=== PATIENT | female | born 1970 | race Native Hawaiian/Other Pacific Islander ===

== ENCOUNTER 2018-11-10 07:33 | Inpatient (IN) | payer OTHER ==
[2018-11-10 08:57] LABS: BASO % 0.7 % (0.0-2.0); EOS # 0.5 K/uL (0.0-0.7); EOS % 9.3 % (0.0-4.0); LYMPH # 1.3 K/uL (1.0-4.3); MEAN CORPUSCULAR HEMOGLOBIN 13.9 pg (27.0-31.0); MEAN CORPUSCULAR HGB CONC 26.8 g/dL (33.0-37.0); MEAN PLATELET VOLUME 8.4 fL (7.2-11.7); MONO # 0.4 K/uL (0.0-0.8); MONO % 8.5 % (0.0-10.0); NEUT # 2.7 K/uL (1.8-7.0); NEUT % 55.5 % (50.0-75.0); NRBC % 0.2 % (0.0-2.0); RBC 4.57 Mil/uL (3.80-5.20); RED CELL DISTRIBUTION WIDTH 23.7 % (11.5-14.5); WHITE BLOOD COUNT 4.9 K/uL (4.8-10.8)
[2018-11-10 09:18] LABS: HEMOGLOBIN 6.4 g/dL (11.0-16.0); MEAN CELL VOLUME 52.1 fL (81.0-99.0)
[2018-11-10 09:24] LABS: CK-MB < 0.22 ng/mL (0.0-3.38)
[2018-11-10 09:29] LABS: ALB/GLOB RATIO 1.1 (1.0-2.1); ALBUMIN 4.3 g/dL (3.5-5.0); ALT/SGPT 18 U/L (9-52); AST/SGOT 23 U/L (14-36); BLOOD UREA NITROGEN 11 mg/dL (7-17); GFR NON-AFRICAN AMERICAN > 60; LIPASE 56 U/L (23-300)
--- NOTE | 2018-11-10 10:45 | C.PDOC ---
History Of Present Illness 48 y/o female presents to the ER complaining of intermittent midsternal chest pain which has been present for more than 1 month. Patient states that she has associated intermittent mild shortness of breath. Denies having fever,chills, headache,dizziness, nausea, vomiting, and leg swelling. Patient has PMhx of anemia with blood transfusions. Time Seen by Provider: 11/10/18 07:42 Chief Complaint (Nursing): Chest Pain History Per: Patient History/Exam Limitations: no limitations Onset/Duration Of Symptoms: Days Current Symptoms Are (Timing): Still Present Severity: Moderate Associated Symptoms: Dyspnea Past Medical History Reviewed: Historical Data, Nursing Documentation, Vital Signs Vital Signs: Last Vital Signs Temp 97.9 F 11/10/18 07:40 Pulse 73 11/10/18 07:40 Resp 18 11/10/18 07:40 BP 121/75 11/10/18 07:40 Pulse Ox 98 11/10/18 07:40 Primary Care Provider: FAMILY PROVIDER,NO - Medical History PMH: Anemia Other Surgeries: Hx of surgeries Family History: States: No Known Family Hx - Social History Hx Alcohol Use: No Hx Substance Use: No - Immunization History Hx Tetanus Toxoid Vaccination: Yes Hx Influenza Vaccination: Yes Hx Pneumococcal Vaccination: Yes Review Of Systems Except As Marked, All Systems Reviewed And Found Negative. Constitutional: Negative for: Fever, Chills Cardiovascular: Positive for: Chest Pain Respiratory: Positive for: Shortness of Breath Gastrointestinal: Negative for: Nausea, Vomiting, Abdominal Pain Physical Exam - Physical Exam Appears: Non-toxic, No Acute Distress Skin: Normal Color, Warm, Dry Head: Atraumatic, Normacephalic Eye(s): bilateral: Normal Inspection Nose: Normal Oral Mucosa: Moist Neck: Normal ROM, Supple Chest: Symmetrical, Tenderness (mild reproducible left anterior chest wall tenderness) Cardiovascular: Rhythm Regular Respiratory: Normal Breath Sounds, No Rales, No Rhonchi, No Wheezing Gastrointestinal/Abdominal: Normal Exam, Soft, No Tenderness, No Guarding, No Rebound Neurological/Psych: Oriented x3, Normal Speech ED Course And Treatment - Laboratory Results Result Diagrams: 11/10/18 08:41 11/10/18 08:41 Lab Results: Troponin I < 0.0120 ng/mL (0.00-0.120) 11/10/18 08:41 Total Bilirubin 0.3 mg/dL (0.2-1.3) 11/10/18 08:41 AST 23 U/L (14-36) 11/10/18 08:41 ALT 18 U/L (9-52) 11/10/18 08:41 Alkaline Phosphatase 58 U/L (38-126) 11/10/18 08:41 Total Protein 8.1 g/dL (6.3-8.3) 11/10/18 08:41 Albumin 4.3 g/dL (3.5-5.0) 11/10/18 08:41 Globulin 3.8 gm/dL (2.2-3.9) 11/10/18 08:41 Albumin/Globulin Ratio 1.1 (1.0-2.1) 11/10/18 08:41 Lipase 56 U/L (23-300) 11/10/18 08:41 Lab Interpretation: Abnormal Urine POC: Negative ECG: Interpreted By Me ECG Rhythm: Sinus Rhythm ECG Interpretation: No Acute Changes Rate From EC O2 Sat by Pulse Oximetry: 98 (RA) Pulse Ox Interpretation: Normal - Other Rad No standard instances X-Ray: Viewed By Me, Read By Radiologist Interpretation: Findings: No focal infiltrate or effusion. Bibasilar breast and nipple shadows. Tortuous aorta. Bilateral hilar prominence. Degenerative changes in the spine. Impression: No focal infiltrate or effusion. Progress Note: Labs,UA, EKG, and CXR ordered. Blood consent obtained Reassessment Condition: Unchanged - Physician Consult Information Physician Contacted: Jake Gaston Outcome Of Conversation: admit Medical Decision Making Medical Decision Making: Case discussed with Dr Gaston and request Tele admission Disposition - Disposition Disposition: HOSPITALIZED Disposition Time: 15:40 Condition: STABLE - Clinical Impression Clinical Impression: Chest pain, Anemia - PA / SENIOR COMPENSATION ANALYST / Resident Statement MD/DO has reviewed & agrees with the documentation as recorded. - Scribe Statement The provider has reviewed the documentation as recorded by the Scribe Watson New Provider Attestation All medical record entries made by the Scribe were at my direction and personally dictated by me. I have reviewed the chart and agree that the record accurately reflects my personal performance of the history, physical exam, medical decision making, and the department course for this patient. I have also personally directed, reviewed, and agree with the discharge instructions and disposition. Decision To Admit - Pt Status Changed To: Hospital Disposition Of: Inpatient - Admit Certification Admit to Inpatient:: After my assessment, the patient will require hospitalization for at least two midnights. This is because of the severity of symptoms shown, intensity of services needed, and/or the medical risk in this patient being treated as an outpatient. - InPatient: Physician Admission Certification: I certify that this patient requires 2 or more midnights of care for the following reason:: Severe Anemia. Chest Pain - . Bed Request Type: Telemetry Admitting Physician: Jake Gaston Patient Diagnosis: Chest pain, Anemia
--- NOTE | 2018-11-10 11:02 | RAD ---
Chest x-ray two views HISTORY: Shortness of breath. Comparison: None available. Findings: No focal infiltrate or effusion. Bibasilar breast and nipple shadows. Tortuous aorta. Bilateral hilar prominence. Degenerative changes in the spine. Impression: No focal infiltrate or effusion.
[2018-11-10 11:33] LABS: HCG,QUALITATIVE URINE NEGATIVE (NEGATIVE)
[2018-11-10 11:34] LABS: SQUAMOUS EPITHIAL 2 /hpf (0-5); URINE BILIRUBIN NEGATIVE (NEGATIVE); URINE BLOOD NEGATIVE (NEGATIVE); URINE CLARITY Clear (Clear); URINE COLOR Yellow (YELLOW); URINE GLUCOSE (UA) NORMAL (Normal); URINE LEUKOCYTE ESTERASE NEG Leu/uL (Negative); URINE PROTEIN NEGATIVE (NEGATIVE); URINE UROBILINOGEN NORMAL mg/dL (0.2-1.0)
--- NOTE | 2018-11-10 13:36 | CP.PCM.HP ---
<Federico Aguilar - Last Filed: 11/10/18 17:15> History of Present Illness - History of Present Illness History of Present Illness: PGY-1 History and Physcial for Dr. Gaston Patient is a 48 year old [place] female with PMHx anemia. Patient states she has history of anemia for many years which is treated with BID ferrous sulfate and injections of which she is unsure. Patient does not have a PMD in the [place] and just goes to hospital when she starts to feel symptomatic. [place] [facility] [place] but states she was on her way to work today near when decided to come to ED so came to [facility]. Patient states typically when she is symptomatic from anemia she feels dizzy, woozy, lightheaded, and sometimes short of breath. Patient states she has felt like this for the past month with SOB on exertion, dizziness, and in the past week started to develop chest pain which is pleuritic in nature. Patient states her LMP was one month ago and she is regular with her periods, lasting about 3 days and she goes through 2-3 pads/day. Patient had colonoscopy during last time she was hospitalized for anemia, which was 2 years [place] [facility] [place] she states colonoscopy results were normal. Patient knows to check from blood in the stool because of her anemia and states that lately she has been constipated but denies any blood in the stool or black or tarry stools. Patient denies headache, nausea, vomiting, abdominal pain, easy bruising or bleeding, dysuria, flank pain, numbness or tingling, focal weakness. 12 point ROS reviewed and all negative except as per HPI PMHx: Anemia PSHx: C section x1 Allergies: Penicillin (anaphylactic), anesthetic agent beginning with an E that cause her R arm to swell Social hx: Denies tobacco, alcohol, or drug use Hospitalizations: Multiple for anemia, [place] [facility] [place] Family hx: Multiple family members with "heart" conditions - she believes HTN. No family hx anemia Medications: Ferrous sulfate 325mg PO BID (in past took TID, but it causes her stomach upset) PMD: Denies Present on Admission - Present on Admission Any Indicators Present on Admission: No Review of Systems - Review of Systems Review of Systems: As per HPI Past Patient History - Past Social History Smoking Status: Never Smoked - HEMATOLOGICAL/ONCOLOGICAL Hx Anemia: Yes - PSYCHIATRIC Hx Substance Use: No - SURGICAL HISTORY Hx Surgeries: Yes Hx Section: Yes - ANESTHESIA Hx Anesthesia: Yes Hx Anesthesia Reactions: No Meds Allergies/Adverse Reactions: Allergies Allergy/AdvReac Type Severity Reaction Status Date / Time seasonal Allergy Uncoded 11/10/18 07:49 Physical Exam - Constitutional Appears: Non-toxic, No Acute Distress - Head Exam Head Exam: ATRAUMATIC, NORMOCEPHALIC - Eye Exam Eye Exam: EOMI, Normal appearance - ENT Exam ENT Exam: Mucous Membranes Moist - Respiratory Exam Respiratory Exam: Clear to Auscultation Bilateral, NORMAL BREATHING PATTERN. absent: Rhonchi, Wheezes - Cardiovascular Exam Cardiovascular Exam: REGULAR RHYTHM, +S1, +S2, Systolic Murmur (holosystolic murmur hear best at R 2nd intercostal space) - GI/Abdominal Exam GI & Abdominal Exam: Normal Bowel Sounds, Soft. absent: Tenderness - Rectal Exam Rectal Exam: NORMAL INSPECTION. absent: Black Stool, Bloody Stool, Hemorrhoids Additional comments: Stool sample sent for FOBT - Extremities Exam Extremities exam: Positive for: normal inspection. Negative for: pedal edema, tenderness - Neurological Exam Neurological exam: Alert, CN II-XII Intact, Oriented x3 - Psychiatric Exam Psychiatric exam: Normal Affect, Normal Mood - Skin Skin Exam: Dry, Intact Results - Vital Signs Recent Vital Signs: Last Vital Signs Temp 98.2 F 11/10/18 13:00 Pulse 80 11/10/18 13:00 Resp 20 11/10/18 13:00 BP 122/79 11/10/18 13:00 Pulse Ox 99 11/10/18 13:00 - Labs Result Diagrams: 11/10/18 08:41 11/10/18 08:41 Labs: Laboratory Results - last 24 hr 11/10/18 11/10/18 11/10/18 08:41 08:41 09:40 WBC 4.9 RBC 4.57 Hgb 6.4 L* Hct 23.8 L MCV 52.1 L MCH 13.9 L MCHC 26.8 L RDW 23.7 H Plt Count 368 MPV 8.4 Neut % (Auto) 55.5 Lymph % (Auto) 26.0 [place] % (Auto) 8.5 Eos % (Auto) 9.3 H Baso % (Auto) 0.7 Neut # (Auto) 2.7 Lymph # (Auto) 1.3 [place] # (Auto) 0.4 Eos # (Auto) 0.5 Baso # (Auto) 0.0 Differential Comment Sodium 138 Potassium 4.0 Chloride 106 Carbon Dioxide 21 L Anion Gap 15 BUN 11 Creatinine 0.7 Est GFR ( Amer) > 60 Est GFR (Non-Af Amer) > 60 Random Glucose 91 Calcium 9.0 Total Bilirubin 0.3 AST 23 ALT 18 Alkaline Phosphatase 58 CK-MB (Mass) < 0.22 Troponin I < 0.0120 Total Protein 8.1 Albumin 4.3 Globulin 3.8 Albumin/Globulin Ratio 1.1 Lipase 56 Urine Color Urine Clarity Urine pH Ur Specific [place] Urine Protein Urine Glucose (UA) Urine Ketones Urine Blood Urine Nitrate Urine Bilirubin Urine Urobilinogen Ur Leukocyte Esterase Urine WBC (Auto) Urine RBC (Auto) Ur Squamous Epith Cells Urine HCG, Qual Blood Type O POSITIVE Blood Type Confirm O POSITIVE Antibody Screen Negative 11/10/18 11:12 WBC RBC Hgb Hct MCV MCH MCHC RDW Plt Count MPV Neut % (Auto) Lymph % (Auto) [place] % (Auto) Eos % (Auto) Baso % (Auto) Neut # (Auto) Lymph # (Auto) [place] # (Auto) Eos # (Auto) Baso # (Auto) Differential Comment Sodium Potassium Chloride Carbon Dioxide Anion Gap BUN Creatinine Est GFR ( Amer) Est GFR (Non-Af Amer) Random Glucose Calcium Total Bilirubin AST ALT Alkaline Phosphatase CK-MB (Mass) Troponin I Total Protein Albumin Globulin Albumin/Globulin Ratio Lipase Urine Color Yellow Urine Clarity Clear Urine pH 6.0 Ur Specific [place] 1.005 Urine Protein Negative Urine Glucose (UA) Normal Urine Ketones Negative Urine Blood Negative Urine Nitrate Negative Urine Bilirubin Negative Urine Urobilinogen Normal Ur Leukocyte Esterase Neg Urine WBC (Auto) < 1 Urine RBC (Auto) 1 Ur Squamous Epith Cells 2 Urine HCG, Qual Negative Blood Type Blood Type Confirm Antibody Screen Assessment & Plan - Assessment and Plan (Free Text) Assessment: 48 y/o female with PMHx anemia presents with chest pain, SOB, and dizziness, likely 2/2 anemia which is symptomatic. Plan: Symptomatic Anemia Status: Acute on chronic -HgB 6.4 -Microcytic - MCV 52.1 -HR and BP stable -Afebrile -Typed and crossed -Blood transfusion begun in ED - Receiving 2nd of 3 U PRBC -Heme/onc consulted, Dr. Mccoy - f/u recs -Iron studies: Iron, TIBC, ferritin, haptoglobin, LDH - f/u -Normal rectal exam, f/u FOBT Home meds -Ferrous sulfate 325mg PO BID Chest pain, r/o ACS -Initial ROMIs negative, EKG NSR no ST changes -Repeat Q6 EKG/ROMIs - f/u PPx -DVT ppx c/i 2/2 symptomatic anemia Assessment and plan d/w Dr. Marilin Aguilar, PGY-1 <Jake Gaston H - Last Filed: 11/10/18 17:56> Results - Vital Signs Recent Vital Signs: Last Vital Signs Temp 98.7 F 11/10/18 16:01 Pulse 78 11/10/18 16:01 Resp 19 11/10/18 16:01 BP 126/84 11/10/18 16:01 Pulse Ox 98 11/10/18 15:41 - Labs Result Diagrams: 11/10/18 08:41 11/10/18 08:41 Labs: Laboratory Results - last 24 hr 11/10/18 11/10/18 11/10/18 08:41 08:41 09:40 WBC 4.9 RBC 4.57 Hgb 6.4 L* Hct 23.8 L MCV 52.1 L MCH 13.9 L MCHC 26.8 L RDW 23.7 H Plt Count 368 MPV 8.4 Neut % (Auto) 55.5 Lymph % (Auto) 26.0 [place] % (Auto) 8.5 Eos % (Auto) 9.3 H Baso % (Auto) 0.7 Neut # (Auto) 2.7 Lymph # (Auto) 1.3 [place] # (Auto) 0.4 Eos # (Auto) 0.5 Baso # (Auto) 0.0 Differential Comment Sodium 138 Potassium 4.0 Chloride 106 Carbon Dioxide 21 L Anion Gap 15 BUN 11 Creatinine 0.7 Est GFR ( Amer) > 60 Est GFR (Non-Af Amer) > 60 Random Glucose 91 Calcium 9.0 Total Bilirubin 0.3 AST 23 ALT 18 Alkaline Phosphatase 58 CK-MB (Mass) < 0.22 Troponin I < 0.0120 Total Protein 8.1 Albumin 4.3 Globulin 3.8 Albumin/Globulin Ratio 1.1 Lipase 56 Urine Color Urine Clarity Urine pH Ur Specific [place] Urine Protein Urine Glucose (UA) Urine Ketones Urine Blood Urine Nitrate Urine Bilirubin Urine Urobilinogen Ur Leukocyte Esterase Urine WBC (Auto) Urine RBC (Auto) Ur Squamous Epith Cells Urine HCG, Qual Stool Occult Blood Blood Type O POSITIVE Blood Type Confirm O POSITIVE Antibody Screen Negative 11/10/18 11/10/18 11:12 14:45 WBC RBC Hgb Hct MCV MCH MCHC RDW Plt Count MPV Neut % (Auto) Lymph % (Auto) [place] % (Auto) Eos % (Auto) Baso % (Auto) Neut # (Auto) Lymph # (Auto) [place] # (Auto) Eos # (Auto) Baso # (Auto) Differential Comment Sodium Potassium Chloride Carbon Dioxide Anion Gap BUN Creatinine Est GFR ( Amer) Est GFR (Non-Af Amer) Random Glucose Calcium Total Bilirubin AST ALT Alkaline Phosphatase CK-MB (Mass) Troponin I Total Protein Albumin Globulin Albumin/Globulin Ratio Lipase Urine Color Yellow Urine Clarity Clear Urine pH 6.0 Ur Specific [place] 1.005 Urine Protein Negative Urine Glucose (UA) Normal Urine Ketones Negative Urine Blood Negative Urine Nitrate Negative Urine Bilirubin Negative Urine Urobilinogen Normal Ur Leukocyte Esterase Neg Urine WBC (Auto) < 1 Urine RBC (Auto) 1 Ur Squamous Epith Cells 2 Urine HCG, Qual Negative Stool Occult Blood Negative Blood Type Blood Type Confirm Antibody Screen Attending/Attestation - Attestation I have personally seen and examined this patient.: Yes I have fully participated in the care of the patient.: Yes I have reviewed all pertinent clinical information: Yes Notes (Text): 11/10/18 17:50 Medical attending: Patient was seen and examined by me. Agree with the above note by the resident The patient was at rest, however she explined she has a lot of dyspnea with exertion. She thinks she's had almost 16 times now where she needs a blood transfusion. Her LMP was 1 month ago and she is probably going to have mentrations by next week she says [place] [facility] [place] she came here this time and so we have little to go on besides what she tells us. It appears as if she has very severe iron deficeny anemia. Will check retic co unt, haptoglobin, LDH, transfferitin, serum iron TIBC levels as well. Will give a total of three units of PRBCs for the time being, also MVI, thiamine, folic acid Check stool for occult blood, Ultrasound transvaginal to check for fibroids and also Jake Gaston
[2018-11-10 20:22] LABS: IRON 367 ug/dL (37-170)
[2018-11-10 20:32] LABS: % IRON SATURATION 89 (20-55); TOTAL IRON BINDING CAPACITY 411 ug/dL (250-450)
[2018-11-10 20:59] LABS: FERRITIN 4.1 ng/mL
[2018-11-10 21:30] LABS: FOLATE 11.3 ng/mL
[2018-11-11 06:46] LABS: BASO % 0.5 % (0.0-2.0); EOS % 5.2 % (0.0-4.0); HEMOGLOBIN 9.8 g/dL (11.0-16.0); LYMPH # 1.7 K/uL (1.0-4.3); LYMPH % 26.1 % (20.0-40.0); MEAN CORPUSCULAR HEMOGLOBIN 19.3 pg (27.0-31.0); MEAN CORPUSCULAR HGB CONC 30.6 g/dL (33.0-37.0); MEAN PLATELET VOLUME 8.6 fL (7.2-11.7); MONO % 6.5 % (0.0-10.0); NEUT # 4.1 K/uL (1.8-7.0); NEUT % 61.7 % (50.0-75.0); NRBC % 0.2 % (0.0-2.0); RBC 5.1 Mil/uL (3.80-5.20); RED CELL DISTRIBUTION WIDTH 37.2 % (11.5-14.5); WHITE BLOOD COUNT 6.7 K/uL (4.8-10.8)
[2018-11-11 06:47] LABS: EOS # 0.3 K/uL (0.0-0.7); MONO # 0.4 K/uL (0.0-0.8)
[2018-11-11 06:51] LABS: ALB/GLOB RATIO 1.2 (1.0-2.1); ALT/SGPT 12 U/L (9-52); AST/SGOT 13 U/L (14-36); BLOOD UREA NITROGEN 12 mg/dL (7-17); CALCIUM 8.9 mg/dl (8.6-10.4); GFR NON-AFRICAN AMERICAN > 60
--- NOTE | 2018-11-11 10:33 | CP.PCM.PN ---
<HalinaGregory - Last Filed: 11/11/18 15:02> Subjective - Date & Time of Evaluation Date of Evaluation: 11/11/18 Time of Evaluation: 10:34 - Subjective Subjective: PGY1 Medicine progress note for Dr. Gaston Pt seen and examined at bedside. Pt still reports chest pain: midsternal, unable to describe, nonradiating, but 2/10 now rather than 7/10 yesterday. Also endorses, shortness of breath. Dr. Gaston and I tried to walk the pt, but she began having double vision. Denies fever, chills, abdominal pain, n/v/d, headache, dizziness prior to walking, visual changes prior to walking. Objective - Vital Signs/Intake and Output Vital Signs (last 24 hours): Temp Pulse Resp BP Pulse Ox 97.9 F 67 20 126/83 98 11/11/18 07:05 11/11/18 07:05 11/11/18 07:05 11/11/18 07:05 11/11/18 07:05 Intake and Output: 11/11/18 11/11/18 06:59 18:59 Intake Total 0 Balance 0 - Medications Medications: Current Medications Acetaminophen (Tylenol 325mg Tab) 650 mg PO Q6 PRN PRN Reason: Pain, moderate (4-7) Ferrous Sulfate (Feosol) 325 mg PO BID KEVEN Last Admin: 11/11/18 10:10 Dose: 325 mg Loratadine (Claritin) 10 mg PO DAILY PRN PRN Reason: Allergy symptoms Pneumococcal Polyvalent Vaccine (Pneumovax 23 Vaccine) 0.5 ml IM .ONCE ONE Stop: 11/13/18 10:01 - Labs Labs: 11/11/18 06:19 11/11/18 06:19 - Additional Findings Additional findings: - Constitutional Appears: Non-toxic, No Acute Distress - Head Exam Head Exam: ATRAUMATIC, NORMOCEPHALIC - Eye Exam Eye Exam: EOMI, Normal appearance - ENT Exam ENT Exam: Mucous Membranes Moist - Respiratory Exam Respiratory Exam: Clear to Auscultation Bilateral, NORMAL BREATHING PATTERN. absent: Rhonchi, Wheezes - Cardiovascular Exam Cardiovascular Exam: REGULAR RHYTHM, +S1, +S2, Systolic Murmur (holosystolic murmur hear best at R 2nd intercostal space) - GI/Abdominal Exam GI & Abdominal Exam: Normal Bowel Sounds, Soft. absent: Tenderness - Extremities Exam Extremities exam: Positive for: normal inspection. Negative for: pedal edema, tenderness - Neurological Exam Neurological exam: Alert, Oriented x3 - Psychiatric Exam Psychiatric exam: Normal Affect, Normal Mood - Skin Skin Exam: Dry, Intact Assessment and Plan - Assessment and Plan (Free Text) Assessment: 48 y/o female with PMHx anemia presents with chest pain, SOB, and dizziness, likely 2/2 anemia which is symptomatic. Plan: Symptomatic Anemia Possibly due to fibroids Pt reports prior work up at [facility] [place] which included a negative EGD and colonoscopy Status: Acute on chronic -HgB 6.4 on admission s/p 3 units of pRBC improved to 9.8 -Microcytic - MCV 52.1 -Heme/onc consulted, Dr. Rivera - f/u recs Iron studies: Iron, TIBC, ferritin, haptoglobin, all drawn after blood transfusion was started and thus unhelpful in diagnosis -Normal rectal exam on admission, FOBT negative -Continue home Ferrous sulfate 325mg PO BID -Transvaginal US shows enlarged heterogeneous with a solitary submucosal fibroid. Endometrial hypertrophy. Trace fluid in the endometrial canal. Bilateral adnexal cysts simple as well as complex likely hemorrhagic. Chest pain Dizziness, visual changes on ambulation Heart murmur noted on exam -Initial ROMIs negative, EKG NSR no ST changes -CXR shows no active disease -Orthostatic BP is standing 123/82, sitting 117/80, lying 108/69 -F/u echocardiogram -F/u repeat troponin Nasal congestion Loratadine 10 mg Po daily PPx -chemical VTE ppx c/i 2/2 symptomatic anemia -SCDs Case discussed with Dr. Marilin Meade PGY1 <Jake Gaston - Last Filed: 11/11/18 17:06> Objective - Vital Signs/Intake and Output Vital Signs (last 24 hours): Temp Pulse Resp BP Pulse Ox 98.6 F 76 20 119/75 99 11/11/18 15:10 11/11/18 15:10 11/11/18 15:10 11/11/18 15:10 11/11/18 15:10 Intake and Output: 11/11/18 11/11/18 06:59 18:59 Intake Total 0 Balance 0 - Medications Medications: Current Medications Acetaminophen (Tylenol 325mg Tab) 650 mg PO Q6 PRN PRN Reason: Pain, moderate (4-7) Ferrous Sulfate (Feosol) 325 mg PO BID KEVEN Last Admin: 11/11/18 10:10 Dose: 325 mg Loratadine (Claritin) 10 mg PO DAILY PRN PRN Reason: Allergy symptoms Pneumococcal Polyvalent Vaccine (Pneumovax 23 Vaccine) 0.5 ml IM .ONCE ONE Stop: 11/13/18 10:01 - Labs Labs: 11/11/18 06:19 11/11/18 06:19 Attending/Attestation - Attestation I have personally seen and examined this patient.: Yes I have fully participated in the care of the patient.: Yes I have reviewed all pertinent clinical information, including history, physical exam and plan: Yes Notes (Text): Medical attending: Patient was seen and examined by me. Agree with the above note by the resident The patient had iron studies done - however it seems to me that they did the iron studies after transfusing the patient with two units of PRBCs and I feel as if we wasted our time ordering them. Reguardless her Hgb is improved, she reported feeling better - however on exam when we tried to walk with her she reported she had dizziness and not feeling steady - so we had her sit back down. Check echo, and also orthostatic checks as well. Also checking transvaginal ultrasound for potential large fibroids. Jake Gaston
--- NOTE | 2018-11-11 13:40 | US ---
Date of service: 11/11/2018 HISTORY: Chronic anemia. LMP 10/14/2018. COMPARISON: None available. TECHNIQUE: Transvaginal only. Real -time technique with 2D, duplex and color Doppler FINDINGS: UTERUS: Measures 7 x 8.2 x 12.9 cm. Enlarged heterogeneous uterus. Submucosal midline fibroid posteriorly 1.8 x 1.7 x 1.8 cm. ENDOMETRIUM: Measures 16.1 mm in diameter. Endometrial hypertrophy, trace fluid in the endometrial canal. CERVIX: No cervical abnormality identified. Closed cervix measures 3.3 cm. RIGHT OVARY: Measures 2.2 x 3.2 x 3.8 cm. No solid mass. Normal flow. Debris laden cyst 1.4 x 1.9 cm. Adjacent smaller cyst 1.3 x 1.8 cm. LEFT OVARY: Measures 3 x 3.6 x 3.9 cm. No solid mass. Normal flow. Cyst with debris 2.5 x 2.7 cm. FREE FLUID: No significant free fluid noted. OTHER FINDINGS: None. IMPRESSION: Enlarged heterogeneous with a solitary submucosal fibroid. Endometrial hypertrophy. Trace fluid in the endometrial canal. Bilateral adnexal cysts simple as well as complex likely hemorrhagic.
--- NOTE | 2018-11-11 15:17 | CARD ---
APPROVED REPORT Date of service: 11/11/2018 EXAM: Two-dimensional and M-mode echocardiogram with Doppler and color Doppler. INDICATION Dizziness and Vertigo Dyspnea Murmur 2D DIMENSIONS IVSd1.0 (0.7-1.1cm)LVDd4.9 (3.9-5.9cm) PWd1.0 (0.7-1.1cm)LA Nedhom23 (18-58mL) LVDs3.2 (2.5-4.0cm)FS (%) 34.8 % LVEF (%)63.9 (>50%)LVEF (Sandoval's)69.89 % IVC0.00 cm M-Mode DIMENSIONS RVDd2.10 (2.1-3.2cm)Left Atrium (MM)3.98 (2.5-4.0cm) IVSd1.00 (0.7-1.1cm)Aortic Root2.75 (2.2-3.7cm) LVDd4.86 (4.0-5.6cm)Aortic Cusp Exc.1.71 (1.5-2.0cm) PWd1.09 (0.7-1.1cm)FS (%) 28 % LVDs3.52 (2.0-3.8cm)LVEF (%)53 (>50%) Mitral Valve MV E Tevcbtjx53.2cm/sMV A Wgmoszdo21.0cm/sE/A ratio2.2 QLXV365.77 cm/s TDI Lateral E' Peak V12.55cm/sMedial E' Peak V8.09cm/sE/Lateral E'7.0 E/Medial E'10.9 Tricuspid Valve TR Peak [id number]/sTR Peak Gr.[id number] LEFT VENTRICLE The left ventricle is normal size. There is normal left ventricular wall thickness. The left ventricular function is normal. The left ventricular ejection fraction is within the normal range. There is normal LV segmental wall motion. The left ventricular diastolic function is normal. RIGHT VENTRICLE The right ventricle is normal size. There is normal right ventricular wall thickness. The right ventricular systolic function is normal. ATRIA The left atrium is mildly dilated. The right atrium size is normal. AORTIC VALVE The aortic valve is normal in structure. No aortic regurgitation is present. There is no aortic valvular stenosis. MITRAL VALVE The mitral valve is normal in structure. Mitral regurgitation is trace to mild. TRICUSPID VALVE The tricuspid valve is normal in structure. There is mild tricuspid regurgitation. There is no pulmonary hypertension. PULMONIC VALVE The pulmonary valve is normal in structure. There is mild pulmonic valvular regurgitation. GREAT VESSELS The aortic root is normal in size. The IVC is normal in size and collapses >50% with inspiration. PERICARDIAL EFFUSION There is no pericardial effusion. <Conclusion> Normal bi-ventricular function. The left atrium is mildly dilated. Trace to mild mitral and tricuspid regurgitation. There is no pericardial effusion.
--- NOTE | 2018-11-11 15:31 | CP.PCM.CON ---
History of Present Illness - History of Present Illness History of Present Illness: HEMONC CONSULT 48 year old female with PMHx anemia. Sh is admitted for symptomatic anemia found to have Hb of 6.4 and s/p 3 units of prbc transfusion with adequate response. Upon admission she was complaining of dizzy, lightheaded, and periodic shortness of breath. Patient states she has felt like this for the past month with SOB on exertion, dizziness, and in the past week started to develop chest pain which promted her to seek medical attention. She had a similar admission to [facility] [place] two years ago and also require blood transfusino along with a colonoscopy. She is feeling much better since transfusion and her symptoms resolved. She endorses heavy menses and that she has uterine fibroids, but due to insurance issues she in not able to seek adequate medical attention. Denies any family history of malignancy or blood disorders. She is non complaint with her oral iron replacement. 12 point ROS reviewed and all negative except as per HPI PMHx: Anemia PSHx: C section x1 Allergies: Penicillin (anaphylactic), anesthetic agent beginning with an E that cause her R arm to swell Social hx: Denies tobacco, alcohol, or drug use Family hx: non contributory Medications: Ferrous sulfate 325mg PO BID (in past took TID, but it causes her stomach upset) Review of Systems - Constitutional Constitutional: As Per HPI - EENT Eyes: As Per HPI Ears: As Per HPI Nose/Mouth/Throat: As Per HPI - Breasts Breasts: As Per HPI - Cardiovascular Cardiovascular: As Per HPI - Respiratory Respiratory: As Per HPI - Gastrointestinal Gastrointestinal: As Per HPI - Genitourinary Genitourinary: As Per HPI - Reproductive: Female Reproductive:Female: As Per HPI - Menstruation Menstruation: As Per HPI - Musculoskeletal Musculoskeletal: As Per HPI - Integumentary Integumentary: As Per HPI - Neurological Neurological: As Per HPI - Psychiatric Psychiatric: As Per HPI - Endocrine Endocrine: As Per HPI - Hematologic/Lymphatic Hematologic: As Per HPI Past Patient History - Past Medical History & Family History Past Medical History?: Yes - Past Social History Smoking Status: Never Smoked - HEMATOLOGICAL/ONCOLOGICAL Hx Anemia: Yes - MUSCULOSKELETAL/RHEUMATOLOGICAL Hx Falls: No - PSYCHIATRIC Hx Substance Use: No - SURGICAL HISTORY Hx Surgeries: Yes Hx Section: Yes - ANESTHESIA Hx Anesthesia: Yes Hx Anesthesia Reactions: No Meds Allergies/Adverse Reactions: Allergies Allergy/AdvReac Type Severity Reaction Status Date / Time seasonal Allergy Uncoded 11/10/18 07:49 - Medications Medications: Current Medications Acetaminophen (Tylenol 325mg Tab) 650 mg PO Q6 PRN PRN Reason: Pain, moderate (4-7) Ferrous Sulfate (Feosol) 325 mg PO BID KEVEN Last Admin: 11/10/18 17:16 Dose: 325 mg Loratadine (Claritin) 10 mg PO DAILY PRN PRN Reason: Allergy symptoms Pneumococcal Polyvalent Vaccine (Pneumovax 23 Vaccine) 0.5 ml IM .ONCE ONE Stop: 11/13/18 10:01 Physical Exam - Constitutional Appears: Non-toxic, No Acute Distress - Head Exam Head Exam: NORMAL INSPECTION - Eye Exam Eye Exam: EOMI, Normal appearance Pupil Exam: NORMAL ACCOMODATION, PERRL - ENT Exam ENT Exam: Mucous Membranes Moist - Neck Exam Neck exam: Positive for: Normal Inspection. Negative for: Lymphadenopathy - Respiratory Exam Respiratory Exam: Clear to Auscultation Bilateral, NORMAL BREATHING PATTERN - Cardiovascular Exam Cardiovascular Exam: REGULAR RHYTHM, +S1, +S2 - GI/Abdominal Exam GI & Abdominal Exam: Normal Bowel Sounds, Soft - Extremities Exam Extremities exam: Positive for: full ROM, normal inspection - Back Exam Back exam: NORMAL INSPECTION - Neurological Exam Neurological exam: Alert, CN II-XII Intact, Oriented x3 Results - Vital Signs Recent Vital Signs: Last Vital Signs Temp 97.9 F 11/11/18 07:05 Pulse 67 11/11/18 07:05 Resp 20 11/11/18 07:05 BP 126/83 11/11/18 07:05 Pulse Ox 98 11/11/18 07:05 - Labs Result Diagrams: 11/11/18 06:19 11/11/18 06:19 Labs: Laboratory Results - last 24 hr 11/10/18 11/10/18 11/10/18 08:41 08:41 09:40 WBC 4.9 RBC 4.57 Hgb 6.4 L* Hct 23.8 L MCV 52.1 L MCH 13.9 L MCHC 26.8 L RDW 23.7 H Plt Count 368 MPV 8.4 Neut % (Auto) 55.5 Lymph % (Auto) 26.0 [place] % (Auto) 8.5 Eos % (Auto) 9.3 H Baso % (Auto) 0.7 Neut # (Auto) 2.7 Lymph # (Auto) 1.3 [place] # (Auto) 0.4 Eos # (Auto) 0.5 Baso # (Auto) 0.0 Differential Comment Retic Count Haptoglobin Sodium 138 Potassium 4.0 Chloride 106 Carbon Dioxide 21 L Anion Gap 15 BUN 11 Creatinine 0.7 Est GFR ( Amer) > 60 Est GFR (Non-Af Amer) > 60 Random Glucose 91 Calcium 9.0 Phosphorus Magnesium Iron TIBC % Saturation Ferritin Total Bilirubin 0.3 AST 23 ALT 18 Alkaline Phosphatase 58 Lactate Dehydrogenase CK-MB (Mass) < 0.22 Troponin I < 0.0120 Total Protein 8.1 Albumin 4.3 Globulin 3.8 Albumin/Globulin Ratio 1.1 Lipase 56 Vitamin B12 Folate Urine Color Urine Clarity Urine pH Ur Specific [place] Urine Protein Urine Glucose (UA) Urine Ketones Urine Blood Urine Nitrate Urine Bilirubin Urine Urobilinogen Ur Leukocyte Esterase Urine WBC (Auto) Urine RBC (Auto) Ur Squamous Epith Cells Urine HCG, Qual Stool Occult Blood Blood Type O POSITIVE Blood Type Confirm O POSITIVE Antibody Screen Negative 11/10/18 11/10/18 11/10/18 11:12 14:45 19:50 WBC RBC Hgb Hct MCV MCH MCHC RDW Plt Count MPV Neut % (Auto) Lymph % (Auto) [place] % (Auto) Eos % (Auto) Baso % (Auto) Neut # (Auto) Lymph # (Auto) [place] # (Auto) Eos # (Auto) Baso # (Auto) Differential Comment Retic Count Haptoglobin Sodium Potassium Chloride Carbon Dioxide Anion Gap BUN Creatinine Est GFR ( Amer) Est GFR (Non-Af Amer) Random Glucose Calcium Phosphorus Magnesium Iron TIBC % Saturation Ferritin 4.1 Total Bilirubin AST ALT Alkaline Phosphatase Lactate Dehydrogenase 342 CK-MB (Mass) Troponin I Total Protein Albumin Globulin Albumin/Globulin Ratio Lipase Vitamin B12 477 Folate 11.3 Urine Color Yellow Urine Clarity Clear Urine pH 6.0 Ur Specific [place] 1.005 Urine Protein Negative Urine Glucose (UA) Normal Urine Ketones Negative Urine Blood Negative Urine Nitrate Negative Urine Bilirubin Negative Urine Urobilinogen Normal Ur Leukocyte Esterase Neg Urine WBC (Auto) < 1 Urine RBC (Auto) 1 Ur Squamous Epith Cells 2 Urine HCG, Qual Negative Stool Occult Blood Negative Blood Type Blood Type Confirm Antibody Screen 11/10/18 11/10/18 11/10/18 19:50 19:50 19:50 WBC RBC Hgb Hct MCV MCH MCHC RDW Plt Count MPV Neut % (Auto) Lymph % (Auto) [place] % (Auto) Eos % (Auto) Baso % (Auto) Neut # (Auto) Lymph # (Auto) [place] # (Auto) Eos # (Auto) Baso # (Auto) Differential Comment Retic Count 1.7 H Haptoglobin 44.8 Sodium Potassium Chloride Carbon Dioxide Anion Gap BUN Creatinine Est GFR ( Amer) Est GFR (Non-Af Amer) Random Glucose Calcium Phosphorus Magnesium Iron 367 H TIBC 411 % Saturation 89 H Ferritin Total Bilirubin AST ALT Alkaline Phosphatase Lactate Dehydrogenase CK-MB (Mass) Troponin I Total Protein Albumin Globulin Albumin/Globulin Ratio Lipase Vitamin B12 Folate Urine Color Urine Clarity Urine pH Ur Specific [place] Urine Protein Urine Glucose (UA) Urine Ketones Urine Blood Urine Nitrate Urine Bilirubin Urine Urobilinogen Ur Leukocyte Esterase Urine WBC (Auto) Urine RBC (Auto) Ur Squamous Epith Cells Urine HCG, Qual Stool Occult Blood Blood Type Blood Type Confirm Antibody Screen 11/11/18 11/11/18 06:19 06:19 WBC 6.7 RBC 5.10 Hgb 9.8 L D Hct 32.1 L MCV 63.0 L D MCH 19.3 L MCHC 30.6 L RDW 37.2 H Plt Count 295 MPV 8.6 Neut % (Auto) 61.7 Lymph % (Auto) 26.1 [place] % (Auto) 6.5 Eos % (Auto) 5.2 H Baso % (Auto) 0.5 Neut # (Auto) 4.1 Lymph # (Auto) 1.7 [place] # (Auto) 0.4 Eos # (Auto) 0.3 Baso # (Auto) 0.0 Differential Comment Retic Count Haptoglobin Sodium 137 Potassium 3.8 Chloride 107 Carbon Dioxide 23 Anion Gap 12 BUN 12 Creatinine 0.7 Est GFR ( Amer) > 60 Est GFR (Non-Af Amer) > 60 Random Glucose 82 Calcium 8.9 Phosphorus 3.0 Magnesium 2.0 Iron TIBC % Saturation Ferritin Total Bilirubin 0.6 AST 13 L D ALT 12 Alkaline Phosphatase 56 Lactate Dehydrogenase CK-MB (Mass) Troponin I Total Protein 7.5 Albumin 4.0 Globulin 3.5 Albumin/Globulin Ratio 1.2 Lipase Vitamin B12 Folate Urine Color Urine Clarity Urine pH Ur Specific [place] Urine Protein Urine Glucose (UA) Urine Ketones Urine Blood Urine Nitrate Urine Bilirubin Urine Urobilinogen Ur Leukocyte Esterase Urine WBC (Auto) Urine RBC (Auto) Ur Squamous Epith Cells Urine HCG, Qual Stool Occult Blood Blood Type Blood Type Confirm Antibody Screen Assessment & Plan - Assessment and Plan (Free Text) Assessment: In summary, this is a 48 year old female with microcytic anemia due to iron deficiency likely due to heavy menses admitted for symptomatic anemia. She had responded well to transfusion and is feeling well. Plan Monitor CBC and transfuse as clinically indicated Iron profile, B12, Folate, Retic, LDH CLINICAL STAFF RN evaluation for thickened endometrium Will need to follow up on outpatient basis once she obtains insurance as she will greatly benefit from parenteral iron. Thank you for allowing me to partake in your patients care. Sincerely, Fab Rivera
[2018-11-11 15:34] LABS: CK-MB < 0.22 ng/mL (0.0-3.38)
[2018-11-12 07:09] LABS: ALB/GLOB RATIO 1.3 (1.0-2.1); ALBUMIN 4.1 g/dL (3.5-5.0); ALT/SGPT 12 U/L (9-52); AST/SGOT 14 U/L (14-36); BLOOD UREA NITROGEN 15 mg/dL (7-17); CALCIUM 8.5 mg/dl (8.6-10.4); GFR NON-AFRICAN AMERICAN > 60
[2018-11-12 07:31] LABS: BASO # 0.1 K/uL (0.0-0.2); BASO % 1.2 % (0.0-2.0); EOS # 0.3 K/uL (0.0-0.7); EOS % 4.1 % (0.0-4.0); HEMOGLOBIN 9.9 g/dL (11.0-16.0); LYMPH # 1.6 K/uL (1.0-4.3); LYMPH % 25.6 % (20.0-40.0); MEAN CELL VOLUME 62.5 fL (81.0-99.0); MEAN CORPUSCULAR HEMOGLOBIN 19.2 pg (27.0-31.0); MEAN CORPUSCULAR HGB CONC 30.7 g/dL (33.0-37.0); MEAN PLATELET VOLUME 8.8 fL (7.2-11.7); MONO # 0.4 K/uL (0.0-0.8); MONO % 5.9 % (0.0-10.0); NEUT # 3.9 K/uL (1.8-7.0); NEUT % 63.2 % (50.0-75.0); NRBC % 0.1 % (0.0-2.0); RBC 5.14 Mil/uL (3.80-5.20); RED CELL DISTRIBUTION WIDTH 38.6 % (11.5-14.5); WHITE BLOOD COUNT 6.2 K/uL (4.8-10.8)
--- NOTE | 2018-11-12 15:06 | CP.PCM.DIS ---
<PhyllisGregory arias - Last Filed: 11/12/18 16:58> Provider - Provider Date of Admission: 11/10/18 10:32 Attending physician: Jake Gaston DO Consults: 11/10/18 13:47 Hematology Oncology Consult Routine Comment: Consulting Provider: Fab Rivera Consulting Physician: Fab Rivera Reason for Consult: Chronic anemia, microcytic Time Spent in preparation of Discharge (in minutes): 35 Diagnosis - Discharge Diagnosis (1) Fibroid Status: Chronic (2) Thickened endometrium Status: Acute (3) Anemia Status: Chronic (4) Chest pain Status: Resolved Hospital Course - Lab Results Lab Results: Most Recent Lab Values WBC 6.2 K/uL (4.8-10.8) 11/12/18 06:31 RBC 5.14 Mil/uL (3.80-5.20) 11/12/18 06:31 Hgb 9.9 g/dL (11.0-16.0) L 11/12/18 06:31 Hct 32.1 % (34.0-47.0) L 11/12/18 06:31 MCV 62.5 fL (81.0-99.0) L 11/12/18 06:31 MCH 19.2 pg (27.0-31.0) L 11/12/18 06:31 MCHC 30.7 g/dL (33.0-37.0) L 11/12/18 06:31 RDW 38.6 % (11.5-14.5) H 11/12/18 06:31 Plt Count 339 K/uL (130-400) 11/12/18 06:31 MPV 8.8 fL (7.2-11.7) 11/12/18 06:31 Neut % (Auto) 63.2 % (50.0-75.0) 11/12/18 06:31 Lymph % (Auto) 25.6 % (20.0-40.0) 11/12/18 06:31 [place] % (Auto) 5.9 % (0.0-10.0) 11/12/18 06:31 Eos % (Auto) 4.1 % (0.0-4.0) H 11/12/18 06:31 Baso % (Auto) 1.2 % (0.0-2.0) 11/12/18 06:31 Neut # (Auto) 3.9 K/uL (1.8-7.0) 11/12/18 06:31 Lymph # (Auto) 1.6 K/uL (1.0-4.3) 11/12/18 06:31 [place] # (Auto) 0.4 K/uL (0.0-0.8) 11/12/18 06:31 Eos # (Auto) 0.3 K/uL (0.0-0.7) 11/12/18 06:31 Baso # (Auto) 0.1 K/uL (0.0-0.2) 11/12/18 06:31 Differential Comment 11/12/18 06:31 Retic Count 1.7 % (0.5-1.5) H 11/10/18 19:50 Haptoglobin 44.8 mg/dL (30.0-200.0) 11/10/18 19:50 Sodium 138 mmol/L (132-148) 11/12/18 06:31 Potassium 3.8 mmol/L (3.6-5.2) 11/12/18 06:31 Chloride 107 mmol/L (98-107) 11/12/18 06:31 Carbon Dioxide 21 mmol/L (22-30) L 11/12/18 06:31 Anion Gap 14 (10-20) 11/12/18 06:31 BUN 15 mg/dL (7-17) 11/12/18 06:31 Creatinine 0.8 mg/dL (0.7-1.2) 11/12/18 06:31 Est GFR ( Amer) > 60 11/12/18 06:31 Est GFR (Non-Af Amer) > 60 11/12/18 06:31 Random Glucose 82 mg/dL (65-105) 11/12/18 06:31 Calcium 8.5 mg/dl (8.6-10.4) L 11/12/18 06:31 Phosphorus 3.3 mg/dL (2.5-4.5) 11/12/18 06:31 Magnesium 2.0 mg/dL (1.6-2.3) 11/12/18 06:31 Iron 367 ug/dL (37-170) H 11/10/18 19:50 TIBC 411 ug/dL (250-450) 11/10/18 19:50 % Saturation 89 (20-55) H 11/10/18 19:50 Ferritin 4.1 ng/mL 11/10/18 19:50 Total Bilirubin 0.4 mg/dL (0.2-1.3) 11/12/18 06:31 AST 14 U/L (14-36) 11/12/18 06:31 ALT 12 U/L (9-52) 11/12/18 06:31 Alkaline Phosphatase 56 U/L (38-126) 11/12/18 06:31 Lactate Dehydrogenase 342 U/L (313-618) 11/10/18 19:50 Total Creatine Kinase 41 U/L (30-135) 11/11/18 14:08 CK-MB (Mass) < 0.22 ng/mL (0.0-3.38) 11/11/18 14:08 Troponin I < 0.0120 ng/mL (0.00-0.120) 11/11/18 14:08 Total Protein 7.2 g/dL (6.3-8.3) 11/12/18 06:31 Albumin 4.1 g/dL (3.5-5.0) 11/12/18 06:31 Globulin 3.1 gm/dL (2.2-3.9) 11/12/18 06:31 Albumin/Globulin Ratio 1.3 (1.0-2.1) 11/12/18 06:31 Lipase 56 U/L (23-300) 11/10/18 08:41 Vitamin B12 477 pg/mL (239-931) 11/10/18 19:50 Folate 11.3 ng/mL 11/10/18 19:50 Urine Color Yellow (YELLOW) 11/10/18 11:12 Urine Clarity Clear (Clear) 11/10/18 11:12 Urine pH 6.0 (5.0-8.0) 11/10/18 11:12 Ur Specific [place] 1.005 (1.003-1.030) 11/10/18 11:12 Urine Protein Negative mg/dL (NEGATIVE) 11/10/18 11:12 Urine Glucose (UA) Normal mg/dL (Normal) 11/10/18 11:12 Urine Ketones Negative mg/dL (NEGATIVE) 11/10/18 11:12 Urine Blood Negative (NEGATIVE) 11/10/18 11:12 Urine Nitrate Negative (NEGATIVE) 11/10/18 11:12 Urine Bilirubin Negative (NEGATIVE) 11/10/18 11:12 Urine Urobilinogen Normal mg/dL (0.2-1.0) 11/10/18 11:12 Ur Leukocyte Esterase Neg Heena/uL (Negative) 11/10/18 11:12 Urine WBC (Auto) < 1 /hpf (0-5) 11/10/18 11:12 Urine RBC (Auto) 1 /hpf (0-3) 11/10/18 11:12 Ur Squamous Epith Cells 2 /hpf (0-5) 11/10/18 11:12 Urine HCG, Qual Negative (NEGATIVE) 11/10/18 11:12 Stool Occult Blood Negative (NEGATIVE) 11/10/18 14:45 Blood Type O POSITIVE 11/10/18 09:40 Blood Type Confirm O POSITIVE 11/10/18 09:40 Antibody Screen Negative 11/10/18 09:40 - Hospital Course Hospital Course: On admission: Patient is a 48 year old [place] female with PMHx anemia. Patient states she has history of anemia for many years which is treated with BID ferrous sulfate and injections of which she is unsure. Patient does not have a PMD in the [place] and just goes to hospital when she starts to feel symptomatic. [place] [facility] but states she was on her way to work today near when decided to come to ED so came to [place]. Patient states typically when she is symptomatic from anemia she feels dizzy, woozy, lightheaded, and sometimes short of breath. Patient states she has felt like this for the past month with SOB on exertion, dizziness, and in the past week started to develop chest pain which is pleuritic in nature. Patient states her LMP was one month ago and she is regular with her periods, lasting about 3 days and she goes through 2-3 pads/day. Patient had colonoscopy during last time she was hospitalized for anemia, which was 2 [place] ago [place] [facility] she states colonoscopy results were normal. Patient knows to check from blood in the stool because of her anemia and states that lately she has been constipated but denies any blood in the stool or black or tarry stools. Patient denies headache, nausea, vomiting, abdominal pain, easy bruising or bleeding, dysuria, flank pain, numbness or tingling, focal weakness. Hospital course: Pt received transfusion of 3 units of pRBCs due to hgb 6.4; well tolerated. DR. Rivera, heme/onc consulted for anemia. FOBT is negative. Pt with complaints of chest pain, CXR shows no active disease. EKG shows NSR without STTW changes, troponins were negative. Echocardiogram ordered due to systolic murmur hear on exam. Echo showed LVEF 63.9%, left atrium mildly dilated, trace to mild mitral and tricuspid regurgitation. ransvaginal US shows enlarged heterogeneous with a solitary submucosal fibroid. Endometrial hypertrophy. Trace fluid in the endometrial canal. Bilateral adnexal cysts simple as well as complex likely hemorrhagic. On discharge interview, pt rpeorts improvement of chest pain and sob. Pt denies fever, chills, chest pain, sob, abdominal pain, n/v/d, hematochezia, melena, headache, visual changes, dizziness, lightheadedness. This is a summary of the hospital course. Please see EMR for full details. Discharge Exam - Additional Findings Additional findings: - Constitutional Appears: Non-toxic, No Acute Distress - Head Exam Head Exam: ATRAUMATIC, NORMOCEPHALIC - Eye Exam Eye Exam: EOMI, Normal appearance - ENT Exam ENT Exam: Mucous Membranes Moist - Respiratory Exam Respiratory Exam: Clear to Auscultation Bilateral, NORMAL BREATHING PATTERN. absent: Rhonchi, Wheezes - Cardiovascular Exam Cardiovascular Exam: REGULAR RHYTHM, +S1, +S2. Absent: tachycardia - GI/Abdominal Exam GI & Abdominal Exam: Normal Bowel Sounds, Soft. absent: Tenderness - Extremities Exam Extremities exam: Positive for: normal inspection. Negative for: pedal edema, tenderness - Neurological Exam Neurological exam: Alert, Oriented x3 - Psychiatric Exam Psychiatric exam: Normal Affect, Normal Mood - Skin Skin Exam: Dry, Intact Discharge Plan - Discharge Medications Prescriptions: Ferrous Sulfate [Feosol] 325 mg PO BID #60 tab - Follow Up Plan Condition: STABLE Disposition: HOME/ ROUTINE Instructions: Anemia Caused by Low Iron, Adult (DC), Chest Pain (DC), Ferrous Sulfate Additional Instructions: Pt is medically stable for discharge home. Prescriptions provided: Ferrous sulfate 325 mg one tab by mouth twice daily, 8 am and 8 pm. #60. Please take with orange juice to increase absorption. Please follow up with Heme/Onch, Dr. Rivera, for your low blood count. Please follow up with your PMD, or call you insurance company to find a Primary Medical Doctor. If unable to find appointment, please call [facility] for appointment. . Should symptoms worsen, please head to the nearest Emergency Department for further evaluation. Instructions explained to the pt, who understands and agrees with discharge plan. Referrals: Fab Rivera MD [Medical Doctor] - [facility] [Outside] <Jake Gaston - Last Filed: 11/12/18 17:31> Provider - Provider Date of Admission: 11/10/18 10:32 Attending physician: Jake Gaston DO Consults: 11/10/18 13:47 Hematology Oncology Consult Routine Comment: Consulting Provider: Fab Rivera Consulting Physician: Fab Rivera Reason for Consult: Chronic anemia, microcytic Hospital Course - Lab Results Lab Results: Most Recent Lab Values WBC 6.2 K/uL (4.8-10.8) 11/12/18 06:31 RBC 5.14 Mil/uL (3.80-5.20) 11/12/18 06:31 Hgb 9.9 g/dL (11.0-16.0) L 11/12/18 06:31 Hct 32.1 % (34.0-47.0) L 11/12/18 06:31 MCV 62.5 fL (81.0-99.0) L 11/12/18 06:31 MCH 19.2 pg (27.0-31.0) L 11/12/18 06:31 MCHC 30.7 g/dL (33.0-37.0) L 11/12/18 06:31 RDW 38.6 % (11.5-14.5) H 11/12/18 06:31 Plt Count 339 K/uL (130-400) 11/12/18 06:31 MPV 8.8 fL (7.2-11.7) 11/12/18 06:31 Neut % (Auto) 63.2 % (50.0-75.0) 11/12/18 06:31 Lymph % (Auto) 25.6 % (20.0-40.0) 11/12/18 06:31 [place] % (Auto) 5.9 % (0.0-10.0) 11/12/18 06:31 Eos % (Auto) 4.1 % (0.0-4.0) H 11/12/18 06:31 Baso % (Auto) 1.2 % (0.0-2.0) 11/12/18 06:31 Neut # (Auto) 3.9 K/uL (1.8-7.0) 11/12/18 06:31 Lymph # (Auto) 1.6 K/uL (1.0-4.3) 11/12/18 06:31 [place] # (Auto) 0.4 K/uL (0.0-0.8) 11/12/18 06:31 Eos # (Auto) 0.3 K/uL (0.0-0.7) 11/12/18 06:31 Baso # (Auto) 0.1 K/uL (0.0-0.2) 11/12/18 06:31 Differential Comment 11/12/18 06:31 Retic Count 1.7 % (0.5-1.5) H 11/10/18 19:50 Haptoglobin 44.8 mg/dL (30.0-200.0) 11/10/18 19:50 Sodium 138 mmol/L (132-148) 11/12/18 06:31 Potassium 3.8 mmol/L (3.6-5.2) 11/12/18 06:31 Chloride 107 mmol/L (98-107) 11/12/18 06:31 Carbon Dioxide 21 mmol/L (22-30) L 11/12/18 06:31 Anion Gap 14 (10-20) 11/12/18 06:31 BUN 15 mg/dL (7-17) 11/12/18 06:31 Creatinine 0.8 mg/dL (0.7-1.2) 11/12/18 06:31 Est GFR ( Amer) > 60 11/12/18 06:31 Est GFR (Non-Af Amer) > 60 11/12/18 06:31 Random Glucose 82 mg/dL (65-105) 11/12/18 06:31 Calcium 8.5 mg/dl (8.6-10.4) L 11/12/18 06:31 Phosphorus 3.3 mg/dL (2.5-4.5) 11/12/18 06:31 Magnesium 2.0 mg/dL (1.6-2.3) 11/12/18 06:31 Iron 367 ug/dL (37-170) H 11/10/18 19:50 TIBC 411 ug/dL (250-450) 11/10/18 19:50 % Saturation 89 (20-55) H 11/10/18 19:50 Ferritin 4.1 ng/mL 11/10/18 19:50 Total Bilirubin 0.4 mg/dL (0.2-1.3) 11/12/18 06:31 AST 14 U/L (14-36) 11/12/18 06:31 ALT 12 U/L (9-52) 11/12/18 06:31 Alkaline Phosphatase 56 U/L (38-126) 11/12/18 06:31 Lactate Dehydrogenase 342 U/L (313-618) 11/10/18 19:50 Total Creatine Kinase 41 U/L (30-135) 11/11/18 14:08 CK-MB (Mass) < 0.22 ng/mL (0.0-3.38) 11/11/18 14:08 Troponin I < 0.0120 ng/mL (0.00-0.120) 11/11/18 14:08 Total Protein 7.2 g/dL (6.3-8.3) 11/12/18 06:31 Albumin 4.1 g/dL (3.5-5.0) 11/12/18 06:31 Globulin 3.1 gm/dL (2.2-3.9) 11/12/18 06:31 Albumin/Globulin Ratio 1.3 (1.0-2.1) 11/12/18 06:31 Lipase 56 U/L (23-300) 11/10/18 08:41 Vitamin B12 477 pg/mL (239-931) 11/10/18 19:50 Folate 11.3 ng/mL 11/10/18 19:50 Urine Color Yellow (YELLOW) 11/10/18 11:12 Urine Clarity Clear (Clear) 11/10/18 11:12 Urine pH 6.0 (5.0-8.0) 11/10/18 11:12 Ur Specific [place] 1.005 (1.003-1.030) 11/10/18 11:12 Urine Protein Negative mg/dL (NEGATIVE) 11/10/18 11:12 Urine Glucose (UA) Normal mg/dL (Normal) 11/10/18 11:12 Urine Ketones Negative mg/dL (NEGATIVE) 11/10/18 11:12 Urine Blood Negative (NEGATIVE) 11/10/18 11:12 Urine Nitrate Negative (NEGATIVE) 11/10/18 11:12 Urine Bilirubin Negative (NEGATIVE) 11/10/18 11:12 Urine Urobilinogen Normal mg/dL (0.2-1.0) 11/10/18 11:12 Ur Leukocyte Esterase Neg Heena/uL (Negative) 11/10/18 11:12 Urine WBC (Auto) < 1 /hpf (0-5) 11/10/18 11:12 Urine RBC (Auto) 1 /hpf (0-3) 11/10/18 11:12 Ur Squamous Epith Cells 2 /hpf (0-5) 11/10/18 11:12 Urine HCG, Qual Negative (NEGATIVE) 11/10/18 11:12 Stool Occult Blood Negative (NEGATIVE) 11/10/18 14:45 Blood Type O POSITIVE 11/10/18 09:40 Blood Type Confirm O POSITIVE 11/10/18 09:40 Antibody Screen Negative 11/10/18 09:40 Attending/Attestation - Attestation I have personally seen and examined this patient.: Yes I have fully participated in the care of the patient.: Yes I have reviewed all pertinent clinical information, including history, physical exam and plan: Yes Notes (Text): 11/12/18 17:27 Medical attending: Patient was seen and examined by me. Agree with the above note by the resident The patient was not in any acute distress this morning when we came and saw her. The patient had the echo as well as the transvaginal ultrasound. The echo was fine, but the transvaginal ultrasound reported she does have fibroids that can contribute to bleeding. The patient's Hgb is also improved as well and she explains that she has been able to walk around wiothut feeling fatigued and tired like she previously was. So at this point we will discharge her. She is in the process of aquiring insurance and we advised her to see [facility] outpatient Also we advised her of iron supplementation and that she should take Vit C to help with the abdosrbtion of iron Jaek Gaston
[2018-11-12] MEDS ORDERED: Pneumococcal 23-Valent Vaccine IM ONE (15:12)
[2018-11-12 16:30] VITALS: PULSE 61
[2018-11-12 16:47] VITALS: BP 119/65; RESP 20; TEMP 97.6; O2SAT 98
[2018-11-13] MEDS ORDERED: Pneumococcal 23-Valent Vaccine IM ONE (10:00)
--- NOTE | 2018-11-13 12:27 | CARD ---
APPROVED REPORT Date of service: 11/10/2018 EKG Measurement Heart [id number] CT 118P19 [id number] <Conclusion> Normal sinus rhythm Normal ECG
--- NOTE | 2018-11-13 12:27 | CARD ---
APPROVED REPORT Date of service: 11/10/2018 EKG Measurement Heart [id number] [place] 114P5 [id number] <Conclusion> Normal sinus rhythm Normal ECG
== END 2018-11-12 17:30 | disposition home or self-care (01) | DRG 663 ==
LOC: C.ER 07:33 → C.9E 10:32 → C.6T 11:43
PROVIDERS: ADMIT Hospitalist; ATTEND Hospitalist
PROC: 30233N1 Transfusion of Nonautologous Red Blood Cells into Peripheral Vein, Percutaneous Approach (ICD-10-PCS; principal; 2018-11-10)
DX: D50.0 Iron deficiency anemia secondary to blood loss (chronic) (principal); D25.0 Submucous leiomyoma of uterus; N83.292 Other ovarian cyst, left side; N83.291 Other ovarian cyst, right side; N85.00 Endometrial hyperplasia, unspecified; N92.0 Excessive and frequent menstruation with regular cycle; R07.89 Other chest pain; K59.00 Constipation, unspecified; H53.2 Diplopia; Z98.891 History of uterine scar from previous surgery; Z82.49 Family history of ischemic heart disease and other diseases of the circulatory system